=== PATIENT | female | born 1985 | race Caucasian/White ===

== ENCOUNTER 2022-12-05 13:41 | Outpatient (OUT) | payer BC, SELFPAY ==
[2022-12-05 14:08] LABS: Basophils Percent Auto 0.3 % (0.2-2.0); Eosinophils Percent Auto 0.6 % (0.9-7.0); Hematocrit 40.1 % (36.0-48.0); Hemoglobin 13.4 g/dL (12.0-16.0); Immature Granulocytes Abs Auto 0.04 10^3/uL (0.00-0.03); Immature Granulocytes Pct Auto 0.6 % (0.0-0.5); Lymphocytes Absolute Auto 1.9 10^3/uL (1.2-3.8); Mean Corpuscular HGB Conc 33.4 g/dL (29.9-35.2); Mean Corpuscular Hemoglobin 29.7 pg (26.7-34.0); Mean Corpuscular Volume 88.9 fL (81.0-99.0); Mean Platelet Volume 10.7 fL (9.5-13.5); Monocytes Absolute Auto 0.5 10^3/uL (0.3-0.8); Monocytes Percent Auto 7.1 % (1.7-12.0); Neutrophils Percent Auto 61.4 % (43.0-75.0); Platelet Count 199 10^3/uL (150-450); Red Blood Count 4.51 10^6/uL (4.20-5.40); Red Cell Distribution Width 12.5 % (11.0-15.0); White Blood Count 6.5 10^3/uL (4.0-11.0)
[2022-12-05 16:25] LABS: Anion Gap 14.8; BUN Creatinine Ratio 12.2; Carbon Dioxide 23.9 mmol/L (21.0-32.0); Chloride 102 mmol/L (98-107); Estimated GFR (African America >60 (>=60); Estimated GFR (Non-African Ame >60 (>=60); Glucose 81 mg/dL (74-106); Potassium 3.7 mmol/L (3.5-5.1); Sodium 137 mmol/L (136-145)
[2022-12-05 16:26] LABS: Alanine Aminotransferase 21 U/L (14-59); Albumin Globulin Ratio 1.4; Albumin Level 4.4 g/dL (3.4-5.0); Alkaline Phosphatase 50 U/L (46-116); Aspartate Amino Transferase 14 U/L (15-37); Bilirubin Total 0.7 mg/dL (0.2-1.0); Calcium 9.4 mg/dL (8.5-10.1); Chol HDL Ratio 1.7; Cholesterol 148 mg/dL (<=200); Globulin 3.2 g/dL; HDL Cholesterol 88 mg/dL (40-60); Thyroid Stimulating Hormone 0.881 uIU/mL (0.358-3.740); Total Protein 7.6 g/dL (6.4-8.2); Triglycerides 36 mg/dL (<=150); VLDL CHOLESTEROL 7.2 mg/dL
[2022-12-05 16:40] LABS: Estimated Average Glucose 94 mg/dL; Glycohemoglobin A1C 4.9 % (4.5-6.2)
== END 2022-12-05 13:42 | disposition home or self-care (01) ==
LOC: LAB 13:44
PROVIDERS: PCP Family Medicine; Visit Provider Family Medicine
DX: Z00.00 Encounter for general adult medical examination without abnormal findings (principal)
CPT/HCPCS: 36415; 80053; 80061; 83036; 84443; 85025

== ENCOUNTER 2023-04-17 15:00 | Outpatient (OUT) | payer BC, SELFPAY ==
--- NOTE | 2023-04-17 15:03 | US_ITS ---
[address] [address] Patient Name: INDIA MAK MRN: [id number] date: 1985 Sex: F Assigned Patient Location: Current Patient Location: Accession/Order Number: [id number] Exam Date: 04/17/2023 15:04 Report Date: 04/18/2023 06:48 At the request of: RYAN VARGHESE Procedure: US pelvis w/ transvaginal EXAMINATION: US pelvis w/ transvaginal HISTORY: Pelvic Pain R10.2, Family History Of Flores Syndrome Z80.0 COMPARISON: Ultrasound pelvis 10/01/2022, 02/28/2022, 09/13/2021 TECHNIQUE: Transabdominal and/or transvaginal sonographic examination was performed as indicated by examination type. FINDINGS: UTERUS: Normal size and appearance. Small nabothian cysts within cervix. Uterus size: 10.1 x 6.6 x 4.8 cm ENDOMETRIUM: Normal homogeneous appearance. Endometrial thickness: 8 mm RIGHT OVARY: Stable 9 mm complex cyst. Several additional normal-appearing follicles. Duplex Doppler demonstrates normal waveform and flow; resistive index 0.6. Ovary size: 2.9 x 2.5 x 2.5 cm LEFT OVARY: Normal size and appearance. Duplex Doppler demonstrates normal waveform and flow; resistive index 0.5. Ovary size: 4.5 x 2.1 x 2.1 cm CUL-DE-SAC: Unremarkable. No significant free fluid. BLADDER: Unremarkable. OTHER: None. US/US pelvis w/ transvaginal IMPRESSION: 1. Stable complex 9 mm cyst within right ovary (inadvertently described on prior study to be within left ovary but was actually within the right ovary) . This has been present and stable since at least 09/13/2021. 2. No new findings. Electronically authenticated by: BABATUNDE DESIR Date: 04/18/2023 06:48
== END 2023-04-17 15:01 | disposition home or self-care (01) ==
LOC: US 15:00
PROVIDERS: PCP Family Medicine; Visit Provider Obstetrics & Gynecology
DX: R10.2 Pelvic and perineal pain (principal); Z80.0 Family history of malignant neoplasm of digestive organs; N83.291 Other ovarian cyst, right side
CPT/HCPCS: 76830; 76856

== ENCOUNTER 2023-09-16 20:39 | Outpatient (REF) | payer BC, SELFPAY ==
--- OUTSIDE RECORDS SUMMARY | 2023-09-16 20:42 | XMS_ITS | CCD ---
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 Role Phone HALIMA ., DR DAVIS Admitting Unavailable REQUEST, DR ROMO LISTED Primary Care Unavaila ble HALIMA ., DR DAVIS Consulting Unavailable HALIMA ., DR DAVIS Attending Unavailable ZIEBER, DR BABATUNDE Matta Consulting Unavailable HALIMA ., DR DAVIS Attending Unavailable HALIMA ., DR DAVIS Admitting Unavailable REQUEST, NONE LISTED Primary Care Unavaila ble HALIMA ., DR DAVIS Consulting Unavailable HALIMA ., DR DAVIS Attending Unavailable REQUEST, DR NONE LISTED Primary Care Unavaila ble HALIMA ., DR DAVIS Admitting Unavailable HALIMA ., DR DAVIS Consulting Unavailable CHRISTIAN THORNTON Consulting Unavailable Ajit Kevin Attending Unavailable Ajit Kevin Admitting Unavailable Shane Bonilla Primary Care Unavailable Medications Current Medications Medication Drug Class(es) Dates Sig (Normalized) Sig (Original) acetaminophen 325 mg / HYDROcodone bitartrate 5 mg oral tablet (1 source) Opioid Agonist Start: 05-06-2019 take 1-2 tablets by mouth every six hours as needed for pain Hydrocodone-Aceta minophen ([place]) 5-325 mg tablet Active 2 TAB PO Q6H 40 7 May 06, 2019 1-2 tabs every 6 hours as needed for pain ascorbic acid 500 mg extended release oral tablet (1 source) Vitamin C Start: 04-29-2019 take 1 tablet by mouth once daily Ascorbic Acid (Vitamin C) (Vitamin C) 500 mg Tablet Extended Release Active 500 MG PO Daily April 29, 2019 1:00am L.Acid-L.Rham-B.Breve -S.Therm (Probiotic) 3 billion cell Tablet,Chewable (1 source) Start: 04-29-2019 take 3 tablets by mouth once daily L.Acid-L.Rham-B.B reve-S.Therm (Probiotic) 3 billion cell Tablet,Chewable Active 1 TAB PO Daily April 29, 2019 1:00am Magnesium (1 source) Start: 04-29-2019 take 400 mg by mouth once daily Magnesium Active 400 MG PO Daily April 29, 2019 1:00am metFORMIN hydrochloride 500 mg oral tablet (1 source) Biguanide Start: 02-04-2019 take 500 mg by mouth twice daily Metformin Active 500 MG PO Twice daily February 04, 2019 12:00am 24 hr metoprolol succinate 25 mg extended release oral tablet (1 source) beta-Adrenergic Darren Start: 02-04-2019 take 25 mg by mouth once daily at bedtime Metoprolol Succinate Active 25 MG PO Daily at bedtime February 04, 2019 12:00am Vitamin B Complex (1 source) Start: 04-29-2019 take 1 tablet by mouth once daily Vitamin B Complex Active 1 TAB PO Daily April 29, 2019 1:00am Problems Active Problems Problem Classification Problem Date Documented Date Episodic/Chronic Other screening for suspected conditions (not mental disorders or infectious disease) (4 sources) Encounter for screening for malignant neoplasm of cervix; Translations: [ENC SCREENING MALIG NEOPLASM CERV] Onset: 09-04-2022 Episodic Residual codes; unclassified (1 source) Flores syndrome; 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-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 Residual codes; unclassified (1 source) Family history of cancer of colon; Translations: [Family history of malignant neoplasm of digestive organs] 02-05-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 Unclassified (1 source) K64.5 - Perianal venous thrombosis; Translations: [K64.5 - Perianal venous thrombosis] Onset: 05-06-2019 Past or Other Problems Problem Classification Problem Date Documented Da te Episodic/Chronic Abdominal pain (4 sources) Pelvic and perineal pain; Translations: [PELVIC AND PERINEAL PAIN] Onset: 02-28-2022 Episodic Hemorrhoids (1 source) Unspecified hemorrhoids; Translations: [K64.9 - Unspecified hemorrhoids] Onset: 05-06-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 Results Test Name Value Interpretation Reference Range Facil ity US PELVIS AND TRANSVAGon US PELVIS AND TRANSVAG EXAMINATION: US PELVIS AND TRANSVAG HISTORY: Excessive and frequent menstruation COMPARISON: Ultrasound pelvis 02/28/2022 TECHNIQUE: Transabdominal and transvaginal sonographic examination. FINDINGS: UTERUS: Normal size and appearance. Small nabothian cysts within cervix. Uterus size: 9.5 x 5.5 x 4.6 cm ENDOMETRIUM: Normal homogeneous appearance. Endometrial thickness: 8 mm RIGHT OVARY: Normal size and appearance. Incidental small follicle. Duplex Doppler demonstrates normal waveform and flow; resistive index 0.5. Ovary size: 3.9 x 3.0 x 2.1 cm LEFT OVARY: Stable appearance of an 8 x 6 x 5 mm complex cyst. Duplex Doppler demonstrates normal waveform and flow; resistive index 0.5. Ovary size: 3.1 x 2.6 x 1.7 cm CUL-DE-SAC: Unremarkable. No significant free fluid. BLADDER: Unremarkable. OTHER: None. IMPRESSION: 1. Small complex left ovarian cyst, stable since 10/27/2020 except for slight waxing and waning in size. Electronically authenticated by: BABATUNDE DESIR Date: 2022-10-01 13:31 Normal [facility] Pap IG, rfx Aptima HPV, rfx 16/18,45on 09-11-2022 . . Normal [facility] Comment on above: Result Comment: Perf ormed at: WB Performed By: #### P APHR2A #### [facility] [address] [address] [address] Christianne Stover DIAGNOSIS: Comment Normal [facility] Comment on above: Result Comment: NEGA TIVE FOR INTRAEPITHELIAL LESION OR MALIGNANCY. CELLULAR CHANGES ASSOCIATED WITH INFLAMMATION ARE PRESENT. Performed at: WB Performed By: #### P APHR2A #### [facility] [address] [address] [address] Christianne Stover HPV Aptima Negative Normal Negative [facility] Comment on above: Result Comment: This nucleic acid amplification test detects fourteen high-risk HPV types (16,18,31,33,35,39,45,51,52,56,58,59,66,68) without differentiation. Performed at: =G Performed By: #### P APHR2A #### [facility] [address] [address] [address] Christianne Stover HPV Genotype Reflex Comment Normal [facility] Comment on above: Result Comment: Crit eria not met, HPV Genotype not performed. Performed at: WB Performed By: #### P APHR2A #### [facility] [address] [place] [address] Dr. Christianne Stover Methodology: Comment Normal [facility] Comment on above: Result Comment: This liquid based ThinPrep(R) pap test was screened with the use of an image guided system. Performed at: WB Performed By: #### P APHR2A #### [facility] [address] [place] [address] Dr. Christianne Stover Note: Comment Normal [facility] Comment on above: Result Comment: The Pap smear is a screening test designed to aid in the detection of premalignant and malignant conditions of the uterine cervix. It is not a diagnostic procedure and should not be used as the sole means of detecting cervical cancer. Both false-positive and false-negative reports do occur. . Performed at: WB Performed By: #### P APHR2A #### [facility] [address] [place] [address] Dr. Christianne Stover Performed by: Comment Normal [facility] Comment on above: Result Comment: Monica Ramos, Caregiver Services Home (ASCP) Performed at: WB Performed By: #### P APHR2A #### [facility] [address] [place] [address] Dr. Christianne Stover Specimen adequacy: Comment Normal [facility] Comment on above: Result Comment: Sati sfactory for evaluation. Endocervical and/or squamous metaplastic cells (endocervical component) are present. Performed at: WB Performed By: #### P APHR2A #### [facility] [address] [place] [address] Dr. Christianne Stover US PELVIS AND TRANSVAGon US PELVIS AND TRANSVAG EXAM: Weak ultrasound HISTORY: . Pelvic and perineal pain . COMPARISON: 09/13/2021 TECHNIQUE: Transabdominal and transvaginal scanning was performed FINDINGS: Scanning of the pelvis demonstrates uterus to be anteverted and measures 9.4 x 4.5 x 5.4 cm. Endometrial complex measures 8 mm. Right ovary measures 3.3 x 2.4 x 3.5 cm. Color-flow is noted. Follicles are noted. No solid masses are noted. There is a 1 cm x 0.7 cm avascular complicated cystic structure in the right ovary. Left ovary measures 2.1 x 2.7 x 2.6 cm. Color-flow is noted. Follicles are noted. No masses are noted. No fluid was noted in the cul-de-sac. IMPRESSION: 1. Normal-appearing anteverted uterus. 2. Normal left ovary. 3. Within the right ovary there is a 1 x 0.7 cm avascular complex cystic structure with a thick skull wall. This is unchanged from the previous exam. No new findings are noted. 4. No fluid in the cul-de-sac. Electronically authenticated by: CHRISTIAN THORNTON Date: 2022-02-28 09:22 Normal [facility] Encounters Encounter Date Encounter Type Care Provider Facility Start: 10-01-2022 End: 10-02-[address] RYAN VARGHESE . Facility: Start: 09-04-2022 End: 09-04-[address] RYAN VARGHESE . Facility: Start: 02-28-2022 End: 03-01-[address] RYAN VARGHESE . Facility: Start: 05-06-2019 End: 05-06-2019 ambulatory Ajit Kevin Facility:[facility] Payers Date Payer Category Payer Self-pay [id number] 2019 Unknown [id number] 1985 Unknown [id number] 2.16.84 [id number] 1985 Unknown [id number] .16.84 [id number] 1986 Unknown [id number] .16.84 [id number] 1959 Unknown [id number] Unknown O [id number] Unknown [id number] 2.16.84 [id number] Social History Date Type Detail Facility [facility] Work Phone: Start: 1985 Sex Assigned At Female F [facility] Evaluation note Note Date & Type Note Facility Evaluation note No assessment information availa ble [facility] Work Phone: Summary Purpose Family History No Family History Records Found Relationship Condition Age at Onset Recorded Date/[place] father Malignant neoplasm of colon Unknown grandparent Malignant neoplasm of colon Unknown sister Vasovagal syncope Unknown Advance Directives No Advanced Directives Records FoundNo Advanced Directives Records Found Additional Source Comments INFORMATION SOURCE (unrecogn ized section and content) DATE CREATED AUTHOR 10/02/2022 [facility] DATE CREATED AUTHOR AUTHOR'S ORGANIZ ATION 01/19/2023 [facility] Goals (unrecognized section and content) Goals may be documented in a n alternate section FOR RECORDS PERTAINING TO PATIENTS WHO ARE OR HAVE BEEN ENROLLED IN A CHEMICAL DEPENDENCY/SUBSTANCEABUSE PROGRAM, SOME INFORMATION MAY BE OMITTED. This clinical summary was aggregated from multiple sources. Caution should be exercised in using it in the provision of clinical care. This summary normalizes information from multiple sources, and as a consequence, information in this document may materially change the coding, format and clinical context of patient data. In addition, data may be omitted in some cases. CLINICAL DECISIONS SHOULD BE BASED ON THE PRIMARY CLINICAL RECORDS. [facility] [employer] [facility]. provides no warranty or guarantee of the accuracy or completeness of information in this document.
[2023-09-20 11:13] LABS: Age Gdln ACOG Testing Note (.); HPV Aptima Negative (Negative); IGP, Aptima HPV, rfx 16/18,45 Note (.)
== END 2023-09-16 20:40 | disposition home or self-care (01) ==
LOC: LAB 20:39
PROVIDERS: PCP Family Medicine; Visit Provider Obstetrics & Gynecology
DX: Z01.419 Encounter for gynecological examination (general) (routine) without abnormal findings (principal)
CPT/HCPCS: G0145

== ENCOUNTER 2023-09-24 07:46 | Outpatient (OUT) | payer BC, SELFPAY ==
--- OUTSIDE RECORDS SUMMARY | 2023-09-24 07:49 | XMS_ITS | CCD ---
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 Name Role Phone HALIMA ., DR DAVIS Admitting Unavailable REQUEST, DR DEMETRIUS LISTED Primary Care Unavaila ble HALIMA ., DR DAIVS Consulting Unavailable HALIMA ., DR DAVIS Attending Unavailable ZIEBER, DR BABATUNDE Matta Consulting Unavailable HALIMA ., DR DAVIS Attending Unavailable HALIMA ., DR DAVIS Admitting Unavailable REQUEST, NONE LISTED Primary Care Unavaila ble HALIMA ., DR DAVIS Consulting Unavailable HALIMA ., DR DAVIS Attending Unavailable REQUEST, DR DEMETRIUS LISTED Primary Care Unavaila ble HALIMA ., DR DAVIS Admitting Unavailable HALIMA ., DR DAVIS Consulting Unavailable CHRISTIAN THORNTON Consulting Unavailable Ajit Kevin Attending Unavailable Ajit Kevin Admitting Unavailable Shane Bonilla Primary Care Unavailable RYAN VARGHESE Attending Unavailable Medications Current Medications Medication Drug Class(es) Dates Sig (Normalized) Sig (Original) acetaminophen 325 mg / HYDROcodone bitartrate 5 mg oral tablet (1 source) Opioid Agonist Start: 05-06-2019 take 1-2 tablets by mouth every six hours as needed for pain Hydrocodone-Aceta minophen ([place]) 5-325 mg tablet Active 2 TAB PO [...] by: BABATUNDE DESIR Date: 2022-10-01 13:31 Normal [facility] Pap IG, rfx Aptima HPV, rfx 16/18,45on 09-11-2022 . . Normal [facility] Comment on above: Result Comment: Perf ormed at: WB Performed By: #### P APHR2A #### [facility] [address] [place] [address] Dr. Christianne Stover DIAGNOSIS: Comment Normal [facility] Comment on above: Result Comment: NEGA TIVE FOR INTRAEPITHELIAL LESION OR MALIGNANCY. CELLULAR CHANGES ASSOCIATED WITH INFLAMMATION ARE PRESENT. Performed at: WB Performed By: #### P APHR2A #### [facility] [address] [address] [address] Christianne Stover HPV Aptima Negative Normal Negative [facility] Comment on above: Result Comment: This nucleic acid amplification test detects fourteen high-risk HPV types (16,18,31,33,35,39,45,51,52,56,58,59,66,68) without differentiation. Performed at: =G Performed By: #### P APHR2A #### [facility] [address] [address] [address] Christianne Stover HPV Genotype Reflex Comment Normal [facility] Comment on above: Result Comment: Crit eria not met, HPV Genotype not performed. Performed at: WB Performed By: #### P APHR2A #### [facility] [address] [address] [address] Christianne Stover Methodology: Comment Normal [facility] Comment on above: Result Comment: This liquid based ThinPrep(R) pap test was screened with the use of an image guided system. Performed at: WB Performed By: #### P APHR2A #### [facility] [address] [address] [address] Christianne Stover Note: Comment Normal [facility] Comment on above: Result Comment: The [...] WB Performed By: #### P APHR2A #### [facility] [address] [address] [address] Christianne Stover Performed by: Comment Normal [facility] Comment on above: Result Comment: Monica Ramos, Cream Hauler (ASCP) Performed at: WB Performed By: #### P APHR2A #### [facility] [address] [place] [address] Dr. Christianne Stover Specimen adequacy: Comment [facility] Comment on above: Result Comment: Sati sfactory for evaluation. Endocervical and/or squamous metaplastic cells (endocervical component) are present. Performed at: WB Performed By: #### P APHR2A #### [facility] [address] [address] [address] Christianne Stover US PELVIS AND TRANSVAGon [...] by: CHRISTIAN THORNTON Date: 2022-02-28 09:[address] [facility] Encounters Encounter Date Encounter Type Care Provider Facility Start: 09-16-2023 End: 09-16-2023 ambulatory RYAN VARGHESE Not Available Start: 10-01-2022 End: 10-02-[address] RYAN VARGHESE . Facility: Start: 09-04-2022 End: 09-04-[address] RYAN VARGHESE . Facility: Start: 02-28-2022 End: 03-01-[address] RYAN VARGHESE . Facility: Start: 05-06-2019 End: 05-06-2019 ambulatory Ajit Kevin Facility:[facility] Payers Date Payer Category Payer Self-pay [id number] 2019 Unknown [id number] 1985 Unknown [id number] 2.16.84 [id number] 1985 Unknown [id number] .16.84 [id number] 1986 Unknown [id number] 2.16.84 [id number] 1986 Unknown [id number] 2.16.84 [id number] 1959 Unknown [id number] Unknown [facility] [id number] Unknown [id number] 2.16.84 [id number] Social History Date Type Detail Facility Tobacco smoking stat [facility] Unknown if ever smoked [facility] Work Phone: Start: 1985 Sex Assigned At Female F [facility] Evaluation note Note Date & Type Note Facility Evaluation note No assessment information availa ble [facility] Work Phone: Summary Purpose Family History No Family History Records Found Relationship Condition Age at Onset Recorded Date/[place] father Malignant neoplasm of colon Unknown grandparent Malignant neoplasm of colon Unknown sister Vasovagal syncope Unknown Advance Directives No Advanced Directives Records FoundNo Advanced Directives Records FoundNo Advanced Directives Records Found Additional Source Comments INFORMATION SOURCE (unrecogn ized section and content) DATE CREATED AUTHOR [facility]/02/2022 [facility] DATE CREATED AUTHOR AUTHOR'S ORGANIZ ATION 01/19/2023 [facility] DATE CREATED AUTHOR AUTHOR'S ORGANIZ ATION 09/17/2023 [facility] d[facility] EPIC Goals (unrecognized section and content) Goals may [...] BE BASED ON THE PRIMARY CLINICAL RECORDS. [employer] [facility]. provides no warranty or guarantee of the accuracy or completeness of information in this document.
--- NOTE | 2023-09-24 07:54 | US_ITS ---
[address] [address] Patient Name: INDIA MAK MRN: [id number] date: 1985 Sex: F Assigned Patient Location: US Current Patient Location: Accession/Order Number: [id number] Exam Date: 09/24/2023 08:00 Report Date: 09/24/2023 09:03 At the request of: RYAN VARGHESE Procedure: US pelvis w/ transvaginal EXAMINATION: US pelvis w/ transvaginal HISTORY: Pelvic Pain R10.2 COMPARISON: 04/17/2023 ULTRASOUND Pelvis TECHNIQUE: Transabdominal and/or transvaginal sonographic examination was performed as indicated by examination type. FINDINGS: UTERUS: Normal size and appearance. Uterus size: 9.7 x 4.8 x 6.8 cm ENDOMETRIUM: Normal homogeneous appearance. Endometrial thickness: 10 mm RIGHT OVARY: Contains a 9 mm cystic structure with thick hyperechoic rim. Duplex Doppler demonstrates normal waveform and flow; resistive index 0.3. Ovary size: 3.1 x 2.9 x 3.3 cm LEFT OVARY: Normal size and appearance. Duplex Doppler demonstrates normal waveform and flow; resistive index 0.5. Ovary size: 2.7 x 2.7 x 1.8 cm CUL-DE-SAC: Unremarkable. No significant free fluid. BLADDER: Unremarkable. OTHER: None. US/US pelvis w/ transvaginal IMPRESSION: 1. Stable 9 mm complex cyst within right ovary; no appreciable change. 2. No new findings. Electronically authenticated by: BABATUNDE DESIR Date: 09/24/2023 09:03
--- NOTE | 2023-09-24 07:54 | MM_ITS ---
Patient Name: INDIA MAK MR#: [id number] : 1985 Exam Date: 09/24/2023 Ordering Doctor: DR Jack Sage . RADIOLOGY REPORT PROCEDURE: MM TOMOSYNTHESIS SCREENING BI COMPARISON: None. INDICATIONS: Screening Calculator Name NCI Breast Cancer Risk Assessment Tool 5 Year Breast Cancer Risk 0.40% Lifetime Breast Cancer Risk 10.30% Personal Breast Cancer No Personal Ovarian Cancer No Treatments None Family Cancers Grandfather-paternal with colon cancer at age 47; Father with colon cancer at age 53; Father with prostate cancer at age 58. LOCATION: [facility] BREAST COMPOSITION: The breasts are extremely dense, which lowers the sensitivity of mammography. FINDINGS: DIAGNOSTIC CATEGORY 1--NEGATIVE. RIGHT BREAST: No significant suspicious finding. LEFT BREAST: No significant suspicious finding. RECOMMENDATIONS: ROUTINE MAMMOGRAM AND CLINICAL EVALUATION IN 12 MONTHS. PLEASE NOTE: A NORMAL MAMMOGRAM DOES NOT EXCLUDE THE POSSIBILITY OF BREAST CANCER. A CLINICALLY SUSPICIOUS PALPABLE LUMP SHOULD BE BIOPSIED. Dictated by: Andrea Lewis M.D. on 09/24/2023 at 12:56 Approved by: Andrea Lewis M.D. on 09/24/2023 at 13:00
== END 2023-09-24 07:47 | disposition home or self-care (01) ==
LOC: US 07:46
PROVIDERS: PCP Family Medicine; Visit Provider Obstetrics & Gynecology
DX: Z01.419 Encounter for gynecological examination (general) (routine) without abnormal findings (principal); Z15.09 Genetic susceptibility to other malignant neoplasm; R10.2 Pelvic and perineal pain; Z80.0 Family history of malignant neoplasm of digestive organs; Z80.42 Family history of malignant neoplasm of prostate; N83.291 Other ovarian cyst, right side
CPT/HCPCS: 76830; 76856; 77063; 77067

== ENCOUNTER 2023-10-08 07:46 | Outpatient (RCR) | payer BC, SELFPAY | END 2023-10-18 23:59 | disposition home or self-care (01) | LOC: INF 07:46 | PROVIDERS: PCP Family Medicine; Visit Provider Internal Medicine Hematology & Oncology | DX: Z15.09 Genetic susceptibility to other malignant neoplasm (principal); Z84.81 Family history of carrier of genetic disease; N83.291 Other ovarian cyst, right side | CPT/HCPCS: G0463 ==

== ENCOUNTER 2024-03-13 08:47 | Outpatient (OUT) | payer BC, SELFPAY ==
--- NOTE | 2024-03-13 08:50 | US_ITS ---
[address] [address] Patient Name: INDIA AMK MRN: [id number] date: 1985 Sex: F Assigned Patient Location: US Current Patient Location: Accession/Order Number: [id number] Exam Date: 03/13/2024 08:51 Report Date: 03/15/2024 05:46 At the request of: RYAN VARGHESE Procedure: US pelvis w/ transvaginal EXAMINATION: US pelvis w/ transvaginal HISTORY: Pelvic Pain In Female COMPARISON: Ultrasound pelvis 09/24/2023 TECHNIQUE: Transabdominal and/or transvaginal sonographic examination was performed as indicated by examination type. FINDINGS: UTERUS: Normal size and appearance. Uterus size: 9.2 x 4.7 x 6.4 cm ENDOMETRIUM: Normal homogeneous appearance. Endometrial thickness: 6 mm RIGHT OVARY: Stable small complex cyst within right ovary. Today's measurements suggest this is increased slightly in size but I think this is overestimation of the margins. Duplex Doppler demonstrates normal waveform and flow; resistive index 0.6. Ovary size: 2.7 x 2.9 x 2.6 cm LEFT OVARY: Normal size and appearance. Duplex Doppler demonstrates normal waveform and flow; resistive index 0.5. Ovary size: 2.8 x 2.4 x 2.67 m CUL-DE-SAC: Unremarkable. No significant free fluid. BLADDER: Unremarkable. OTHER: None. US/US pelvis w/ transvaginal IMPRESSION: 1. No acute findings to account for patient's symptoms. 2. Stable small subcentimeter complex cyst within right ovary. Electronically authenticated by: BABATUNDE DESIR Date: 03/15/2024 05:46
--- OUTSIDE RECORDS SUMMARY | 2024-03-13 09:08 | XMS_ITS | CCD ---
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 Name Role Phone HALIMA ., DR DAVIS Admitting Unavailable REQUEST, DR NONE LISTED Primary Care Unavaila ble HALIMA ., DR DAVIS Consulting Unavailable HALIMA ., DR DAVIS Attending Unavailable ZIEBER, DR BABATUNDE Matta Consulting Unavailable HALIMA ., DR DAVIS Attending Unavailable HALIMA ., DR DAVIS Admitting Unavailable REQUEST, NONE LISTED Primary Care Unavaila ble HALIMA ., DR DAVIS Consulting Unavailable HALIMA ., DR DAVIS Attending Unavailable REQUEST, NONE LISTED Primary Care Unavaila ble HALIMA ., DR DAVIS Admitting Unavailable HALIMA ., DR DAVIS Consulting Unavailable CHRISTIAN THORNTON Consulting Unavailable Ajit Kevin Attending Unavailable Ajit Kevin Admitting Unavailable Hi Kiser Primary Care Unavailable RYAN VARGHESE Attending Unavailable HI KISER Attending Unavailable HI KISER Attending Unavailable Medications Current Medications Medication Drug Class(es) Dates Sig (Normalized) Sig (Original) acetaminophen 325 mg / HYDROcodone bitartrate 5 mg oral tablet (1 source) Opioid Agonist Start: 05-06-2019 take 1-2 tablets by mouth every six hours as needed for pain Hydrocodone-Aceta minophen ([place]) 5-325 mg tablet Active 2 TAB PO [...] by: BABATUNDE DESIR Date: 2022-10-01 13:[address] [facility] Pap IG, rfx Aptima HPV, rfx 16/18,45on 09-11-2022 . . Normal [facility] Comment on above: Result Comment: Perf ormed at: WB Performed By: #### P APHR2A #### [facility] [address] [address] [address] Christianne Stover DIAGNOSIS: Comment Normal [facility] Comment on above: Result Comment: NEGA TIVE FOR INTRAEPITHELIAL LESION OR MALIGNANCY. CELLULAR CHANGES ASSOCIATED WITH INFLAMMATION ARE PRESENT. Performed at: WB Performed By: #### P APHR2A #### [facility] [address] [address] [address] Christianne Stover HPV Aptima Negative Normal Negative [facility] Comment on above: Result Comment: This nucleic acid amplification test detects fourteen high-risk HPV types (16,18,31,33,35,39,45,51,52,56,58,59,66,68) without differentiation. Performed at: =G Performed By: #### P APHR2A #### [facility] [address] [address] [address] Christianne Stover HPV Genotype Reflex Comment Normal [facility] Comment on above: Result Comment: Crit eria not met, HPV Genotype not performed. Performed at: WB Performed By: #### P APHR2A #### [facility] [address] [place] [address] Dr. Christianne Stover Methodology: Comment Normal [facility] Comment on above: Result Comment: This liquid based ThinPrep(R) pap test was screened with the use of an image guided system. Performed at: WB Performed By: #### P APHR2A #### [facility] [address] [place] [address] Dr. Christianne Stover Note: Comment Normal [facility] Comment on above: Result Comment: The [...] WB Performed By: #### P APHR2A #### [facility] [address] [place] [address] Dr. Christianne Stover Performed by: Comment Normal [facility] Comment on above: Result Comment: Monica Ramos, Legal Billing Coordinator (ASCP) Performed at: WB Performed By: #### P APHR2A #### [facility] [address] [place] [address] Dr. Christianne Stover Specimen adequacy: Comment Normal [facility] Comment on above: Result Comment: Sati sfactory for evaluation. Endocervical and/or squamous metaplastic cells (endocervical component) are present. Performed at: WB Performed By: #### P APHR2A #### [facility] [address] [place] [address] Dr. Christianne Stover US PELVIS AND TRANSVAGon [...] by: CHRISTIAN THORNTON Date: 2022-02-28 09:[address] [facility] Encounters Encounter Date Encounter Type Care Provider Facility Start: 12-26-2023 End: 12-26-2023 ambulatory HI KISER Not Available Start: 10-25-2023 End: 10-25-2023 ambulatory HI KISER Not Available Start: 09-16-2023 End: 09-16-2023 ambulatory RYAN VARGHESE Not Available Start: 10-01-2022 End: 10-02-[address] RYAN VARGHESE . Facility: Start: 09-04-2022 End: 09-04-[address] RYAN VARGHESE . Facility: Start: 02-28-2022 End: 03-01-[address] RYAN VARGHESE . Facility: Start: 05-06-2019 End: 05-06-2019 ambulatory Ajit Kevin Facility:[facility] Payers Date Payer Category Payer Self-pay [id number] 2019 Unknown [id number] 1985 Unknown [id number] 2.16.84 [id number] 1986 Unknown [id number] 2.16.84 [id number] 1986 Unknown [id number] 2.16.84 [id number] 1986 Unknown [id number] 2.16.84 [id number] 1986 Unknown [id number] 2.16.84 [id number] 1986 Unknown [id number] 2.16.84 [id number] 1959 Unknown [id number] Unknown O [id number] Unknown [id number] 2.16.84 [id number] Social History Date Type Detail Facility Tobacco smoking stat [facility] Unknown if ever smoked [facility] Work Phone: Start: 1985 Sex Assigned At Female F [facility] Evaluation note Note Date & Type Note Facility Evaluation note No assessment information availa ble [facility] Work Phone: Summary Purpose Family History No [...] content) DATE CREATED AUTHOR 10/02/2022 [facility] DATE CREATED AUTHOR AUTHOR'S ORGANIZ ATION 01/19/2023 [facility] DATE CREATED AUTHOR AUTHOR'S ORGANIZ ATION 12/29/2023 [facility] EPIC Goals (unrecognized section and [...] BE BASED ON THE PRIMARY CLINICAL RECORDS. [facility]. provides no warranty or guarantee of the accuracy or completeness of information in this document.
== END 2024-03-13 08:48 | disposition home or self-care (01) ==
LOC: US 08:47
PROVIDERS: PCP Family Medicine; Visit Provider Obstetrics & Gynecology
DX: R10.2 Pelvic and perineal pain (principal); N83.291 Other ovarian cyst, right side
CPT/HCPCS: 76830; 76856

== ENCOUNTER 2024-09-16 19:44 | Outpatient (REF) | payer BC, SELFPAY ==
[2024-09-22 09:25] LABS: Age Gdln ACOG Testing Note (.); HPV Aptima Negative (Negative); IGP, Aptima HPV, rfx 16/18,45 Note (.)
== END 2024-09-16 19:45 | disposition home or self-care (01) ==
LOC: LAB 19:44
PROVIDERS: PCP Family Medicine; Visit Provider Obstetrics & Gynecology
DX: Z01.419 Encounter for gynecological examination (general) (routine) without abnormal findings (principal)
CPT/HCPCS: 87624; 88175

== ENCOUNTER 2024-09-22 12:32 | Outpatient (OUT) | payer BC, SELFPAY ==
--- NOTE | 2024-09-22 12:34 | ECG_ITS ---
The [facility] Test Date: 2024-09-22 Pat Name: INDIA MAK Department: Room: - Gender: Female [employer] Att[employer]: : 1985 Requested By: RYAN VARGHESE Order Number: [id number] Reading MD: BRITTON VARELA M.D. Measurements Intervals [place] Rate: 61 P: 67 WA: 141 QRS: 62 QRSD: 89 T: 39 QT: 391 QTc: 396 Interpretive Statements SINUS RHYTHM Normal ECG Compared to ECG 03/03/2021 11:47:14 No significant changes Electronically Signed On 09-22-2024 16:55:34 EDT by BRITTON VARELA M.D.
[2024-09-22 13:35] LABS: Alanine Aminotransferase 28 U/L (14-59); Albumin Globulin Ratio 1.2; Albumin Level 3.9 g/dL (3.4-5.0); Alkaline Phosphatase 44 U/L (46-116); Anion Gap 10.1; Aspartate Amino Transferase 16 U/L (15-37); BUN Creatinine Ratio 11.2; Bilirubin Direct 0.2 mg/dL (0.0-0.2); Bilirubin Total 0.7 mg/dL (0.2-1.0); Calcium 9.2 mg/dL (8.5-10.1); Carbon Dioxide 29.8 mmol/L (21.0-32.0); Chloride 103 mmol/L (98-107); Estimated GFR (African America >60 (>=60 mL/min/1.73m^2); Estimated GFR (Non-African Ame >60 (>=60 mL/min/1.73m^2); Globulin 3.2 g/dL; Glucose 77 mg/dL (74-106); Potassium 3.9 mmol/L (3.5-5.1); Sodium 139 mmol/L (136-145); Total Protein 7.1 g/dL (6.4-8.2)
[2024-09-22 13:36] LABS: Basophils Percent Auto 0.3 % (0.2-2.0); Eosinophils Percent Auto 0.4 % (0.9-7.0); Hematocrit 40.9 % (36.0-48.0); Hemoglobin 13.7 g/dL (12.0-16.0); Immature Granulocytes Abs Auto 0.03 10^3/uL (0.00-0.03); Immature Granulocytes Pct Auto 0.4 % (0.0-0.5); Lymphocytes Absolute Auto 1.8 10^3/uL (1.2-3.8); Lymphocytes Percent Auto 26.5 % (20.5-60.0); Magnesium 1.8 mg/dL (1.8-2.4); Mean Corpuscular HGB Conc 33.5 g/dL (29.9-35.2); Mean Corpuscular Hemoglobin 30.6 pg (26.7-34.0); Mean Corpuscular Volume 91.3 fL (81.0-99.0); Mean Platelet Volume 10.6 fL (9.5-13.5); Monocytes Absolute Auto 0.4 10^3/uL (0.3-0.8); Monocytes Percent Auto 5.9 % (1.7-12.0); Neutrophils Absolute Auto 4.5 10^3/uL (1.4-6.5); Neutrophils Percent Auto 66.5 % (43.0-75.0); Platelet Count 213 10^3/uL (150-450); Red Blood Count 4.48 10^6/uL (4.20-5.40); Red Cell Distribution Width 12.1 % (11.0-15.0); White Blood Count 6.8 10^3/uL (4.0-11.0)
[2024-09-22 13:45] LABS: INR 1.07; Partial Thromboplastin Time 27.2 sec (22.3-36.2); Prothrombin Time 11.3 sec (9.0-11.6)
== END 2024-09-22 12:33 | disposition home or self-care (01) ==
LOC: PST 12:33
PROVIDERS: PCP Family Medicine; Visit Provider Obstetrics & Gynecology
DX: Z01.810 Encounter for preprocedural cardiovascular examination (principal); Z01.812 Encounter for preprocedural laboratory examination; Z15.09 Genetic susceptibility to other malignant neoplasm; R10.2 Pelvic and perineal pain; E28.2 Polycystic ovarian syndrome
CPT/HCPCS: 80048; 80076; 83735; 85025; 85610; 85730; 86850; 86900; 86901; 93005

== ENCOUNTER 2024-09-24 11:03 | Inpatient (IN) | payer BC, SELFPAY ==
[2024-09-22 13:09] VITALS: BP 132/84; PULSE 76; TEMP 36.5; O2SAT 98; BMI 28.0
[2024-09-24] VITALS (11 sets, daily range): BP systolic 97–143; BP diastolic 61–75; PULSE 61–92; TEMP 36.1–36.4; O2SAT 92–100; BMI 27.4
[2024-09-24 10:29] LABS: Basophils Percent Auto 0.3 % (0.2-2.0); Eosinophils Absolute Auto 0.1 10^3/uL (0.0-0.7); Eosinophils Percent Auto 0.9 % (0.9-7.0); Hematocrit 42.4 % (36.0-48.0); Hemoglobin 14.2 g/dL (12.0-16.0); Immature Granulocytes Abs Auto 0.03 10^3/uL (0.00-0.03); Immature Granulocytes Pct Auto 0.5 % (0.0-0.5); Lymphocytes Absolute Auto 1.9 10^3/uL (1.2-3.8); Lymphocytes Percent Auto 32.9 % (20.5-60.0); Mean Corpuscular HGB Conc 33.5 g/dL (29.9-35.2); Mean Corpuscular Hemoglobin 30.6 pg (26.7-34.0); Mean Corpuscular Volume 91.4 fL (81.0-99.0); Mean Platelet Volume 10.6 fL (9.5-13.5); Monocytes Absolute Auto 0.4 10^3/uL (0.3-0.8); Monocytes Percent Auto 6.3 % (1.7-12.0); Neutrophils Absolute Auto 3.4 10^3/uL (1.4-6.5); Neutrophils Percent Auto 59.1 % (43.0-75.0); Platelet Count 212 10^3/uL (150-450); Red Blood Count 4.64 10^6/uL (4.20-5.40); Red Cell Distribution Width 11.9 % (11.0-15.0); White Blood Count 5.8 10^3/uL (4.0-11.0)
[2024-09-24 10:56] LABS: HCG Quantitative <1 mIU/mL
[2024-09-24] MEDS: LACTATED RINGER'S SOLUTION 1,000 ML 50 ML IV ×2 (11:30→12:25)
[2024-09-24] MEDS: CEFAZOLIN SODIUM 1 GM/50 ML D5W PREMIX IV (11:31)
--- NOTE | 2024-09-24 14:25 | P.ON_ITS ---
Brief Operative Note Date of procedure: 09/24/24 Pre-op diagnosis general: pelvic pain, menorrhagia, pfeiffer syndrome, dysmenorrhea Post-op diagnosis: same as pre-op Procedure: NAME OF PROCEDURE: [ ]DAYANNA BSO WITH CYSTOSCOPY PROCEDURE: Patient was taken back to the Operating Room where she was given general anesthesia without difficulty. She was then prepped and draped in the normal sterile fashion. A Pfannenstiel skin incision was then made 2 cm above the symphysis and pubis and carried down to underlying rectus fascia using a Bovie. The fascia was incised in the midline and extended bilaterally using Brunner scissors. Two Shen clamps were placed on the superior aspect of the fascia and dissected off the underlying rectus muscle. The same was performed on the inferior aspect as well. The muscle was then in the midline. The peritoneum was identified and entered bluntly. Peritoneum was then extended superiorly and inferiorly with good visualization of the bladder. An O'Gucgvhaq-O-Fwcjtg retractor was placed into the patient's abdomen. The bowel was packed away with moist laparotomy sponges and the bladder blade was inserted. A Leahey tenaculum was placed on the patient's uterus and used for retraction. LigaSure apparatus was then used to come across the uteroovarian ligament on the patient's right side which was then cauterized and transected. This was carried down serially through the broad ligament and across the round ligament. The bladder flap was then created using the Metzenbaum scissors, and the bladder was easily dissected off the patient's lower uterine segment. A curved Chatnel was placed across the uterine artery on the right side which was clamped, transected, and suture ligated using #0 Monocryl. This was performed on the contralateral side as well. The bladder was further dissected and a Zeppelin clamp was then placed across the uterosacral and cardinal ligaments. This was transected and suture ligated using #0 Monocryl. This was performed on the contralateral side as well. The uterus was then amputated using Jorgensonscissors. The patient's cuff was closed using #0 PDS in a running locked fashion and this was transfixed to the ipsilateral uterosacral and cardinal ligaments. this was done on the contralateral side as well. Excellent hemostasis was assured. small portion of the cervix may have been left behind, The patient's abdomen was copiously irrigated using warm saline. Cystoscopy was performed. Bladder was intact. Efflux was noted from both ostia. Cystoscope was removed. After excellent hemostasis was assured, all instruments were removed from the patient's abdomen. The patient's peritoneum was closed using 3-0 Vicryl in a running fashion. The patient's fascia was closed using #0 Vicryl in a running fashion. The patient's skin was closed using kayla. The patient tolerated the procedure well. Sponge, lap, and needle counts were correct times two. Patient taken to the Recovery Room in stable condition. Anesthesia: BENITEZ Surgeon: Jack Sage Ticket Speculator: Brenda Chamberlain Estimated blood loss (mL): 150 Pathology: other (uterus tubes ovaries and cervix) Condition: stable Disposition: PACU Urinary Catheter Management Urinary Catheter Management Urethral: Cath placed during this visit: no
[2024-09-24] MEDS: LACTATED RINGER'S SOLUTION 1,000 ML 125 ML IV ×2 (14:53→21:01)
--- NOTE | 2024-09-24 15:13 | PC.NURSE ---
PHASE ONE CARE HANDED OVER TO Louisa HELLER RN AT THIS TIME.
[2024-09-24] MEDS: HYDROMORPHONE HCL 0.5 MG/0.5 ML SYRINGE IV ×3 (15:14→15:46)
--- NOTE | 2024-09-24 15:52 | PC.NURSE ---
Patient resting but complaining of abdominal pain. 3rd dose dilaudid given vitals are stable
--- NOTE | 2024-09-24 16:02 | PC.NURSE ---
applied oxygen via nasal cannula due to saturations decreasing from dilaudid administration
[2024-09-24] MEDS: MEPERIDINE HCL/PF 25 MG/ML VIAL IVP (16:18)
[2024-09-24] MEDS: OXYCODONE HCL/ACETAMINOPHEN 5MG/325MG 2 TAB PO (17:58)
[2024-09-24] MEDS: KETOROLAC TROMETHAMINE 30 MG/ML VIAL IVP (19:28)
[2024-09-24] MEDS: CEFAZOLIN SODIUM/DEXTROSE,ISO 2 GM/50 ML PIGGYBACK IV (19:29)
[2024-09-24] MEDS: ONDANSETRON PF 4 MG/2 ML VIAL IV (20:15)
[2024-09-24] MEDS: SIMETHICONE 80 MG TAB.CHEW PO (20:15)
[2024-09-25] MEDS: OXYCODONE HCL/ACETAMINOPHEN 5MG/325MG 2 TAB PO ×2 (00:02→15:50)
[2024-09-25] MEDS: ONDANSETRON PF 4 MG/2 ML VIAL IV (02:44)
[2024-09-25] MEDS: CEFAZOLIN SODIUM/DEXTROSE,ISO 2 GM/50 ML PIGGYBACK IV (02:44)
[2024-09-25] MEDS: KETOROLAC TROMETHAMINE 30 MG/ML VIAL IVP (02:44)
[2024-09-25 04:00] VITALS: BP 105/61; PULSE 81; TEMP 36.9; O2SAT 81
[2024-09-25] MEDS: SIMETHICONE 80 MG TAB.CHEW PO ×2 (05:46→12:29)
[2024-09-25 05:54] LABS: Basophils Percent Auto 0.1 % (0.2-2.0); Hematocrit 36.6 % (36.0-48.0); Hemoglobin 12.2 g/dL (12.0-16.0); Immature Granulocytes Abs Auto 0.03 10^3/uL (0.00-0.03); Immature Granulocytes Pct Auto 0.4 % (0.0-0.5); Lymphocytes Percent Auto 11.6 % (20.5-60.0); Mean Corpuscular HGB Conc 33.3 g/dL (29.9-35.2); Mean Corpuscular Hemoglobin 30.5 pg (26.7-34.0); Mean Corpuscular Volume 91.5 fL (81.0-99.0); Mean Platelet Volume 10.8 fL (9.5-13.5); Monocytes Absolute Auto 0.5 10^3/uL (0.3-0.8); Monocytes Percent Auto 6.4 % (1.7-12.0); Neutrophils Absolute Auto 6.8 10^3/uL (1.4-6.5); Neutrophils Percent Auto 81.5 % (43.0-75.0); Platelet Count 184 10^3/uL (150-450); Red Cell Distribution Width 11.9 % (11.0-15.0); White Blood Count 8.4 10^3/uL (4.0-11.0)
[2024-09-25] MEDS: ENOXAPARIN SODIUM 40 MG/0.4 ML SYRINGE SUBQ (06:16)
[2024-09-25] MEDS: OXYCODONE HCL/ACETAMINOPHEN 5MG/325MG 1 TAB PO (08:18)
[2024-09-25] MEDS: MAGNESIUM HYDROXIDE 2,400 MG/10 ML ORAL.SUSP 2400 MG PO (08:19)
[2024-09-25 08:21] VITALS: BP 112/65; PULSE 74; TEMP 36.7; O2SAT 98
[2024-09-25] MEDS: IBUPROFEN 400 MG TABLET 800 MG PO (09:33)
[2024-09-25 11:10] VITALS: O2SAT 97
--- NOTE | 2024-09-25 13:22 | PM.GYNPN2 ---
CAREER TECHNICAL EDUCATION INSTRUCTOR - PN: Subj Post-Op Subjective: patient reports feeling better, patient has no complaints, patient desires discharge, pain is well controlled and patient is tolerating oral intake Exam Constitutional Vital Signs, click to edit/add: Last Vital Signs Temp 98.1 F 09/25/24 08:21 Pulse 74 09/25/24 08:21 Resp 20 09/25/24 11:10 BP 112/65 09/25/24 08:21 Pulse Ox 97 09/25/24 11:10 O2 Del Method Room Air 09/25/24 11:10 O2 Flow Rate 3 09/24/24 16:48 Documenting provider has reviewed patient's vital signs: yes Common normals: no apparent distress Respiratory Common normals: normal respiratory effort and clear to auscultation bilaterally Cardio Common normals: regular rate and regular rhythm GI Common normals: Normal to inspection, nondistended, normoactive bowel sounds present Extremity Common normals: no clubbing, cyanosis or edema and no calf tenderness Results Labs Labs: Short CBC 09/25/24 Range/Units 05:36 WBC 8.4 (4.0-11.0) 10^3/uL Hgb 12.2 (12.0-16.0) g/dL Hct 36.6 (36.0-48.0) % Plt Count 184 (150-450) 10^3/uL CAREER TECHNICAL EDUCATION INSTRUCTOR - A/P Postoperative Procedures: Procedures Operation Date: 09/24/24 11:30 Actual Procedure Side Surgeon p DAYANNA, TAO, cystoscopy Bilateral Jack Sage DO Postoperative day: 1 Postoperative status CAREER TECHNICAL EDUCATION INSTRUCTOR: doing well Post-operative plan CAREER TECHNICAL EDUCATION INSTRUCTOR: routine post-op care, discharge and other (rx on chart precautions given) Fall Risk Details Kelley fall scale risk level: Low Fall Risk Current medications: Current Medications Docusate Sodium (Docusate Sodium 100 Mg Capsule) 100 mg PO BID PRN PRN Reason: Constipation Enoxaparin Sodium (Enoxaparin Sodium 40 Mg/0.4 Ml Syringe) 40 mg SUBQ Q24H [facility] Last Admin: 09/25/24 06:16 Dose: 40 mg Lactated Ringer's (Lactated Ringers) 1,000 mls @ 125 mls/hr IV .Q8H [facility] Last Infusion: 09/25/24 05:45 Dose: Infused Ibuprofen (Ibuprofen 400 Mg Tablet) 800 mg PO Q6H PRN PRN Reason: Pain Last Admin: 09/25/24 09:33 Dose: 800 mg Ketorolac Tromethamine (Ketorolac Tromethamine 30 Mg/Ml Vial) 30 mg IVP Q6H PRN PRN Reason: Pain Last Admin: 09/25/24 02:44 Dose: 30 mg Ondansetron HCl (Ondansetron Pf 4 Mg/2 Ml Vial) 4 mg IV Q6H PRN PRN Reason: Nausea Last Admin: 09/25/24 02:44 Dose: 4 mg Oxycodone/Acetaminophen (Oxycodone Hcl/Acetaminophen 5mg/325mg) 2 tab PO Q6H PRN PRN Reason: Pain Last Admin: 09/25/24 00:02 Dose: 2 tab Oxycodone/Acetaminophen (Oxycodone Hcl/Acetaminophen 5mg/325mg) 1 tab PO Q6H PRN PRN Reason: Pain Last Admin: 09/25/24 08:18 Dose: 1 tab Simethicone (Simethicone 80 Mg Tab.Chew) 80 mg PO PCHS PRN PRN Reason: Abdominal Distention Last Admin: 09/25/24 12:29 Dose: 80 mg Temazepam (Temazepam 15 Mg Capsule) 30 mg PO QHS PRN PRN Reason: Sleep Time Spent With Patient Time: Total time spent is greater than 50% in coordination of care (as documented) at patient's floor/unit and/or counseling patient: Time with patient: less than 15 minutes Urinary Catheter Management Urinary Catheter Management Urethral: Cath placed during this visit: no
== END 2024-09-25 16:10 | disposition home or self-care (01) | DRG 743 ==
LOC: SURGOUT 14:49 → MS 09-25 06:34 → SURGOUT 09-25 14:18
PROVIDERS: Admitting Provider Obstetrics & Gynecology; PCP Family Medicine; Visit Provider Obstetrics & Gynecology
PROC: 0UT90ZZ Resection of Uterus, Open Approach (ICD-10-PCS; principal; 2024-09-24 11:30)
DX: N92.0 Excessive and frequent menstruation with regular cycle (principal); R10.2 Pelvic and perineal pain; N94.6 Dysmenorrhea, unspecified; E28.2 Polycystic ovarian syndrome; Z15.09 Genetic susceptibility to other malignant neoplasm; F41.1 Generalized anxiety disorder; I34.1 Nonrheumatic mitral (valve) prolapse; K21.9 Gastro-esophageal reflux disease without esophagitis; Z79.899 Other long term (current) drug therapy
CPT/HCPCS: 36415; 84702; 85025; 94667; J0131; J0690; J1100; J1171; J1650; J1885; J2175; J2250; J2405; J2704; J3010